=== PATIENT | female | born 1980 | race Caucasian/White ===

== ENCOUNTER 2025-04-16 20:41 | Emergency (ER) | payer OTHER ==
[2025-04-16 20:52] VITALS: BP 106/82; PULSE 75; RESP 18; TEMP 98; BMI 29.7
[2025-04-16] MEDS ORDERED: KETOROLAC TROMETHAMINE 30 MG/1 ML VIAL ONE (21:43)
[2025-04-16] MEDS: KETOROLAC TROMETHAMINE 30 MG/1 ML VIAL IM ONE (21:50)
== END 2025-04-16 23:28 | disposition home or self-care (01) ==
LOC: JERFT 20:41
PROC: 3E0233Z Introduction of Anti-inflammatory into Muscle, Percutaneous Approach (ICD-10-PCS; principal; 2025-04-16)
DX: S63.601A Unspecified sprain of right thumb, initial encounter (principal); X50.1XXA Overexertion from prolonged static or awkward postures, initial encounter
CPT/HCPCS: 73130-TC-RT-FY; 99284-25